=== PATIENT | male | born 1955 | race Caucasian/White ===

== ENCOUNTER 2021-08-09 10:45 | Day surgery (SDC) | payer MEDICARE, OTHER ==
[~2021-08-09 10:45] MED LIST: Acetaminophen 325 MG Tab PO SCH; Albuterol 0.083% 2.5 MG/3 ML Neb Soln NEB ONE; Bupivacaine 0.25% 10 ML SDV ONE; Dexamethasone 4 MG/ML 5 ML MDV ONE; Dexmedetomidine 200 MCG/2 ML SDV ONE; HYDROmorphone 0.5 MG/0.5 ML Syringe IVPUSH PRN; Ketamine 500 mg/10 ML MDV ONE; Ketorolac 30 MG/ML SDV ONE; Lactated Ringers 1,000 ML IV SCH; Lactated Ringers 1,000 ML ONE; Lidocaine 1% 4 ML ONE; Lidocaine 1%/Sod Bicarbonate in NS 8.4% 1 ML Syringe IDERM PRN; Magnesium Sulfate (4.06 MEQ/ML) 5 GM/10 ML SDV IV STA; Magnesium Sulfate/Water 4 GM in Premix Bag 1 BAG IV ONE; Midazolam 1 MG/ML 2 ML SDV ONE; Morphine 8 MG, EPINEPHrine 0.3 MG, Cefuroxime 750 MG, Ketorolac 30 MG, Sodium Chloride ... PRN; Ondansetron 4 MG/2 ML SDV IVPUSH PRN; Ondansetron 4 MG/2 ML SDV ONE; Pregabalin 25 MG Cap PO SCH; Propofol 200 MG/20 ML SDV ONE; Rocuronium 50 MG/5 ML Vial ONE; Sodium Chloride 0.9% 0 ML ONE; Sodium Chloride 0.9% 10 ML Syringe FLUSH PRN; Sodium Chloride 0.9% 10 ML Syringe FLUSH SCH; Vancomycin 1 GM SDV ONE; ceFAZolin 1 GM Vial ONE; fentaNYL 100 MCG/2 ML SDV IVPUSH PRN; fentaNYL 250 MCG/5 ML SDV ONE; oxyCODONE ER 10 MG TAB.ER PO SCH
[2021-08-09] MEDS ORDERED: ePHEDrine 50 MG/ML SDV ONE (11:36)
[2021-08-09] MEDS ORDERED: fentaNYL 100 MCG/2 ML SDV ONE (11:36)
[2021-08-09] MEDS ORDERED: Lidocaine 1% 5 ML VIAL ONE (11:36)
== END 2021-08-09 14:40 | disposition home or self-care (01) ==
LOC: JD.SDS 10:45
PROVIDERS: ATTEND Orthopaedic Surgery
DX: M16.11 Unilateral primary osteoarthritis, right hip (principal); Z88.8 Allergy status to other drugs, medicaments and biological substances; Z79.899 Other long term (current) drug therapy
CPT/HCPCS: 0055T; 27130; 36415; 73501; 86850; 86900; 86901; 97110; 97116; 97161; A9270; C1713; C1776; J0171; J0690; J0697; J1100; J1885; J2250; J2270; J2405; J2704; J2710; J3010; J3370; J3475; J3490; J7120; 01214

== ENCOUNTER 2022-03-21 08:13 | Day surgery (SDC) | payer MEDICARE, OTHER ==
[~2022-03-21 08:13] MED LIST changes: -Acetaminophen 325 MG Tab PO SCH; -Albuterol 0.083% 2.5 MG/3 ML Neb Soln NEB ONE; -Bupivacaine 0.25% 10 ML SDV ONE; -Dexamethasone 4 MG/ML 5 ML MDV ONE; -Dexmedetomidine 200 MCG/2 ML SDV ONE; -HYDROmorphone 0.5 MG/0.5 ML Syringe IVPUSH PRN; -Ketamine 500 mg/10 ML MDV ONE; -Ketorolac 30 MG/ML SDV ONE; -Lactated Ringers 1,000 ML ONE; -Lidocaine 1% 4 ML ONE; +Lidocaine 1%/Sod Bicarbonate in NS 8.4% 1 ML Syringe IDERM SCH; -Magnesium Sulfate (4.06 MEQ/ML) 5 GM/10 ML SDV IV STA; -Magnesium Sulfate/Water 4 GM in Premix Bag 1 BAG IV ONE; -Midazolam 1 MG/ML 2 ML SDV ONE; -Morphine 8 MG, EPINEPHrine 0.3 MG, Cefuroxime 750 MG, Ketorolac 30 MG, Sodium Chloride ... PRN; -Ondansetron 4 MG/2 ML SDV IVPUSH PRN; -Ondansetron 4 MG/2 ML SDV ONE; -Pregabalin 25 MG Cap PO SCH; -Propofol 200 MG/20 ML SDV ONE; -Rocuronium 50 MG/5 ML Vial ONE; -Sodium Chloride 0.9% 0 ML ONE; -Vancomycin 1 GM SDV ONE; -ceFAZolin 1 GM Vial ONE; -fentaNYL 100 MCG/2 ML SDV IVPUSH PRN; -fentaNYL 250 MCG/5 ML SDV ONE; -oxyCODONE ER 10 MG TAB.ER PO SCH
[2022-03-21] MEDS ORDERED: Lactated Ringers 1,000 ML IV SCH (08:40)
[2022-03-21] MEDS ORDERED: Lidocaine 0.5% 50 ML SDV ONE (09:25)
[2022-03-21] MEDS ORDERED: Sodium Bicarbonate 8.4% 50 MEQ/50 ML SDV ONE (09:25)
[2022-03-21] MEDS ORDERED: ceFAZolin 2 GM Vial ONE (09:25)
[2022-03-21] MEDS ORDERED: Propofol 200 MG/20 ML SDV ONE ×2 (09:30→11:21)
[2022-03-21] MEDS ORDERED: fentaNYL 100 MCG/2 ML SDV ONE ×2 (09:30→11:17)
[2022-03-21] MEDS ORDERED: Midazolam 1 MG/ML 2 ML SDV ONE (09:30)
[2022-03-21] MEDS ORDERED: Lidocaine 1% 4 ML ONE (09:31)
[2022-03-21] MEDS ORDERED: Bupivacaine 0.25% 10 ML SDV ONE (10:06)
[2022-03-21] MEDS ORDERED: Ondansetron 4 MG/2 ML SDV ONE (10:54)
[2022-03-21] MEDS ORDERED: Ketorolac 30 MG/ML SDV ONE (10:54)
[2022-03-21] MEDS ORDERED: Lactated Ringers 1,000 ML ONE (11:13)
== END 2022-03-21 12:38 | disposition home or self-care (01) ==
LOC: JD.SDS 08:13
PROVIDERS: ATTEND Orthopaedic Surgery
DX: M18.11 Unilateral primary osteoarthritis of first carpometacarpal joint, right hand (principal); I10 Essential (primary) hypertension; F32.A Depression, unspecified; K21.9 Gastro-esophageal reflux disease without esophagitis; Z79.899 Other long term (current) drug therapy; Z88.8 Allergy status to other drugs, medicaments and biological substances; Z91.018 Allergy to other foods; Z98.890 Other specified postprocedural states
CPT/HCPCS: 25447; 76000; C1713; J0690; J1885; J2250; J2405; J2704; J3010; J3490; J7120; 01830

== ENCOUNTER 2024-02-01 06:30 | Day surgery (SDC) | payer MEDICARE ==
[~2024-02-01 06:30] MED LIST changes: -Lactated Ringers 1,000 ML IV SCH; -Lidocaine 1%/Sod Bicarbonate in NS 8.4% 1 ML Syringe IDERM PRN; -Lidocaine 1%/Sod Bicarbonate in NS 8.4% 1 ML Syringe IDERM SCH; +Morphine 8 MG, EPINEPHrine 0.3 MG, Cefuroxime 750 MG, Ketorolac 30 MG, Sodium Chloride ... PRN
[2024-02-01] MEDS: Lactated Ringers 1,000 ML IV SCH (06:50)
[2024-02-01] MEDS ORDERED: Propofol 200 MG/20 ML SDV ONE (06:59)
[2024-02-01] MEDS ORDERED: Midazolam 1 MG/ML 2 ML SDV ONE (06:59)
[2024-02-01] MEDS ORDERED: fentaNYL 100 MCG/2 ML SDV ONE (06:59)
[2024-02-01] MEDS ORDERED: Rocuronium 50 MG/5 ML Vial ONE (06:59)
[2024-02-01] MEDS ORDERED: Lidocaine 2% 5 ML SDV ONE (06:59)
[2024-02-01] MEDS ORDERED: ceFAZolin 2 GM Vial ONE (08:41)
[2024-02-01] MEDS ORDERED: Esmolol 100 MG/10 ML SDV ONE (09:24)
[2024-02-01] MEDS ORDERED: Lactated Ringers 1,000 ML IV ONE (09:30)
[2024-02-01] MEDS ORDERED: Ketorolac 30 MG/ML SDV ONE (09:41)
[2024-02-01] MEDS ORDERED: Ondansetron 4 MG/2 ML SDV ONE (09:41)
[2024-02-01] MEDS ORDERED: Neostigmine Methylsulfate 10 MG/10 ML MDV ONE (09:44)
[2024-02-01] MEDS: Vancomycin 1 GM SDV ONE (09:47)
[2024-02-01] MEDS: Morphine 8 MG, EPINEPHrine 0.3 MG, Cefuroxime 750 MG, Ketorolac 30 MG, Sodium Chloride ... PRN (09:47)
[2024-02-01] MEDS: Tranexamic Acid 1,000 MG/10 ML Vial ONE (09:47)
[2024-02-01] MEDS ORDERED: HYDROmorphone 0.5 MG/0.5 ML Syringe ONE (10:03)
[2024-02-01] MEDS ORDERED: HYDROmorphone 0.5 MG/0.5 ML Syringe IVPUSH PRN (10:24)
[2024-02-01] MEDS ORDERED: Ondansetron 4 MG/2 ML SDV IVPUSH PRN (10:24)
[2024-02-01] MEDS: fentaNYL 100 MCG/2 ML SDV IVPUSH PRN (10:30)
[2024-02-01] MEDS ORDERED: Acetaminophen/HYDROcodone 325-5 MG Tab PO ONE (12:00)
[2024-02-01] MEDS ORDERED: Acetaminophen/HYDROcodone 325-5 MG Tab PO PRN (12:00)
== END 2024-02-01 13:10 | disposition home or self-care (01) ==
LOC: JD.SDS 06:30
PROVIDERS: ATTEND Orthopaedic Surgery
DX: M16.12 Unilateral primary osteoarthritis, left hip (principal); K21.9 Gastro-esophageal reflux disease without esophagitis; F32.A Depression, unspecified; Z79.899 Other long term (current) drug therapy
CPT/HCPCS: 01214; 36415; 73501-26-LT; 73501-LT; 86850; 86900; 86901; 97110-GP; 97161-GP; C1713; C1776; J0171; J0690; J0697; J1170; J1885; J2250; J2270; J2405; J2704; J2710; J3010; J3370; J3490; J7120